=== PATIENT | female | born 1995 | race Caucasian/White ===

== ENCOUNTER 2017-01-04 14:25 | Emergency (ER) | payer SELFPAY ==
[~2017-01-04] VITALS: Ht 160 cm; Wt 55.3 kg
[2017-01-04 15:04] VITALS: BP 130/75
--- NOTE | 2017-01-04 18:10 | NUR ---
PATIENT LEFT WITHOUT BEING SEEN BY DR. ZARCO. NO FURTHER CARE PROVIDED FOR PATIENT.
== END 2017-01-04 18:10 | disposition left against medical advice (07) ==
LOC: MED 14:25
DX: R30.0 Dysuria (principal); Z53.21 Procedure and treatment not carried out due to patient leaving prior to being seen by health care provider

== ENCOUNTER 2018-10-11 19:18 | Observation (INO) | payer MEDICAID ==
[~2018-10-11] VITALS: Ht 160 cm; Wt 58.1 kg
[2018-10-11 19:31] VITALS: BP 114/70
--- NOTE | 2018-10-11 19:34 | NUR ---
TO LOBBY A/W BED, CHRIS DEXTER NOTED
--- NOTE | 2018-10-11 19:50 | NUR ---
PT AMBULATORY TO ER BED 11, W/ FAMILY.
--- NOTE | 2018-10-11 19:55 | NUR ---
First contact with pt. pt presents to the ed w/c/o abd pain in LLQ x today. pt denies eating, or doing anything different from her normal routine. pt states she had a bm earlier today. abd soft and tender to palpation. bowl sounds active in all 4quadrants. peipheral pulses present. lungs clear bilat. +cms. cap refill <3. pt in 1010 pain. pt denies chest pain/sob at this time. +n/v x today. nka only history reported is sx on cyst on her lower abd
[2018-10-11] MEDS ORDERED: ONDANSETRON 4 MG/2 ML VIAL IVP ONE (20:45)
[2018-10-11] MEDS ORDERED: MORPHINE SULFATE 4 MG/ML SYR IVP ONE ×2 (20:45→22:40)
[2018-10-11] MEDS ORDERED: NACL 0.9% 1,000 ML IV ONE (20:45)
[2018-10-11 20:56] LABS: APPEARANCE,URINE HAZY (CLEAR); BILIRUBIN,URINE NEGATIVE (NEGATIVE); BLOOD, URINE 3+ (NEGATIVE); COLOR,URINE DARK YELLOW (YELLOW); LEUKOCYTE ESTERASE ,URINE NEGATIVE (NEGATIVE); NITRITE, URINE NEGATIVE (NEGATIVE); UGLUCOSE NEGATIVE (NEGATIVE)
[2018-10-11 21:03] LABS: RBC,URINE TOO NUMEROUS TO COUN /HPF (0-5); WBC,URINE 0-5 /HPF (0-5)
[2018-10-11 21:08] LABS: BASOPHILS % (AUTO) 0.3 % (0.0-2.0); EOSINOPHILS # (AUTO) 0.1 K/uL (0-0.4); EOSINOPHILS % (AUTO) 1.3 % (0.0-4.0); HEMOGLOBIN 11.6 g/dL (12.0-16.0); LYMPHOCYTES # (AUTO) 1.3 K/uL (2.5-16.5); LYMPHOCYTES % (AUTO) 13.9 % (20.5-51.1); MEAN CORPUSCULAR HEMOGLOBIN 30 pg (27-31); MEAN CORPUSCULAR HGB CONC 33 g/dL (33-37); MEAN CORPUSCULAR VOLUME 89.8 fL (80-94); MONOCYTES # (AUTO) 0.6 K/uL (0.8-1.0); MONOCYTES % (AUTO) 6.3 % (1.7-9.3); NEUTROPHILS # (AUTO) 7.2 K/uL (1.8-7.7); NEUTROPHILS % (AUTO) 78.2 % (42.2-75.2); PLATELET COUNT (AUTO) 284 K/uL (140-450); RED BLOOD CELL COUNT(AUTO) 3.89 MIL/uL (4.20-5.40); RED CELL DISTRIBUTION WIDTH 12.9 % (11.6-13.7); WHITE BLOOD COUNT (AUTO) 9.2 K/uL (4.8-10.8)
--- NOTE | 2018-10-11 21:09 | NUR ---
PT RESTING IN BED AT THIS TIME. NAD NOTED. RR EVEN/UNLABORED. PER DR. SALINAS WE ARE GOING TO CANCEL CT DUE TO POSITIVE TEST AND GOING FORWARD WITH US
[2018-10-11 21:21] LABS: ANION GAP 13.4 (8-16); CREATININE 0.7 mg/dL (0.6-1.3); POTASSIUM 3.4 mmol/L (3.5-5.1)
--- NOTE | 2018-10-11 21:33 | NUR ---
Ultrasound at bedside.
[2018-10-11 21:50] LABS: ALBUMIN 3.9 g/dL (3.4-5.0); TOTAL BILIRUBIN 0.3 mg/dL (0.0-1.0)
--- NOTE | 2018-10-11 21:59 | NUR ---
Stephanie vragas in ED - 10/11/18 at 2159 by RASHEED Patient discharged with v/s stable. Written and verbal after care instructions given and explained. Patient verbalized understanding. Ambulatory with steady gait. All questions addressed prior to discharge. Advised to follow up with PMD.
--- NOTE | 2018-10-11 22:19 | NUR ---
PT REPORTS RETUNING PAIN IN LLQ 7/10 AT THIS TIME. WILL INFORM
--- NOTE | 2018-10-11 22:20 | NUR ---
dr. jaffe to put in orders for pain medication.
--- NOTE | 2018-10-11 22:28 | NUR ---
pt set up for pelvic exam at this time.
--- NOTE | 2018-10-11 22:55 | NUR ---
received verbal order from dr. jaffe for 2mg morphine
--- NOTE | 2018-10-11 23:33 | NUR ---
pt resting in bed. pain controlled at this time. nad noted. rr even/unlabored.
--- NOTE | 2018-10-11 23:40 | NUR ---
called to ask for updated on us report status
--- NOTE | 2018-10-12 00:03 | NUR ---
spoke with yasmani from company that sends over us reports. states she will resend it and fax as well. results show ectopic . Addendum: 10/12/18 at 0150 by RASHEED from [facility]
--- NOTE | 2018-10-12 01:50 | NUR ---
pt resting in bed. NAD noted. No further complaints. pt resting easy
--- NOTE | 2018-10-12 02:05 | NUR ---
ADMITTED A 23F FRO ER. CAME BY WHEELCHAIR. ACCOMPANIED BY MOTHER. MED SURG -FOR OBSERVATION. AWAKE,ALERT AND ORIENTED X4. AMBULATORY. CAME DUE TO A RIGHT LOWER ABDOMINAL PAIN WITH NAUSEA AND VOMITING FOR 1 DAY. DENIES ANY PAIN AT THIS TIME. MEDICATED IN ER PRIOR TO BE IN THE UNIT. HAS HL ON THE LT AC G#20. CLEAR AND PATENT. PLAN OF CARE DISCUSSED AND VERBALIZED UNDERSTANDING. ORIENTED TO HOSPITAL ROUTINE. BED ON LOW POSITION, SIDE RAILS UP X2. CALL LIGHT PLACED WITHIN EASY REACH. WILL FOLLOW UP ADMIT ORDERS WITH DR. DAVIDSON. WILL CONTINUE TO MONITOR.
--- NOTE | 2018-10-12 02:12 | NUR ---
Patient will be admitted to care of dr. holland. Admited to [facility]. Will go to room 105b. Belongings list completed. Report to Annie POOLE.
[2018-10-12 02:33] VITALS: BP 92/56
--- NOTE | 2018-10-12 02:50 | NUR ---
PAGED DR. DAVIDSON FOR PT ADMISSION. CALLED BACK WITH SOME ORDERS. WILL SEE PT THIS AM TODAY.
--- NOTE | 2018-10-12 02:51 | NUR ---
LATE ENTRY. DR. DAVIDSON MADE AWARE OF K+ LEVEL 3.4 NO ORDER MADE.
[2018-10-12] MEDS: LACTATED RINGERS 1,000 ML IV SCH ×2 (03:25→12:51)
--- NOTE | 2018-10-12 03:25 | NUR ---
IVF LR @ 125 ML /HR STARTED ON THE LT AC G#20.
--- NOTE | 2018-10-12 05:00 | NUR ---
MADE ROUNDS. NO S/S OF ANY DISCOMFORT NOR PAIN NOTED.
--- NOTE | 2018-10-12 06:00 | NUR ---
PT HAS BEEN REPOSITIONED FOR COMFORT. INCONTINENT X2. Addendum: 10/12/18 at 0640 by Becca Morales RN CANCEL ABOVE NOTES. WRONG PT.
--- NOTE | 2018-10-12 06:30 | NUR ---
SLEEPING. NO C/O ANY ABDOMINAL PAIN NOTED UP TO THIS TIME.
--- NOTE | 2018-10-12 06:38 | NUR ---
NO RESPIRATORY DISTRESS NOTED DURING THE NIGHT. Addendum: 10/12/18 at 0640 by Becca Morales RN CANCEL ABOVE NOTES. WRONG PT.
--- NOTE | 2018-10-12 07:15 | NUR ---
WILL ENDORSE PT IN STABLE CONDITION TO AM NURSE FOR CONTINUITY OF CARE.
--- NOTE | 2018-10-12 07:16 | NUR ---
RECEIVED REPORT AT BEDSIDE FROM CELL [employer]SEM[employer] PINNER NURSE NOEMI. PT IN STABLE CONDITION. RESPIRATIONS EVEN AND UNLABORED. IV INTACT AND PATENT. SAFETY MEASURES IN PLACE. BED IN LOW POSITION. CALL LIGHT AT BEDSIDE. WILL CONTINUE TO MONITOR.
[2018-10-12 08:00] VITALS: BP 89/53
--- NOTE | 2018-10-12 09:35 | NUR ---
PT LYING IN BED SLEEPING AT THIS TIME. FAMILY AT BEDSIDE. WILL CONTINUE TO MONITOR. BED IN LOW POSITION. CALL LIGHT AT BEDSIDE.
[2018-10-12 12:00] VITALS: BP 94/56
--- NOTE | 2018-10-12 12:12 | NUR ---
PATIENT HAS BEEN SCREENED AND CATEGORIZED LOW NUTRITION RISK. PATIENT WILL BE SEEN WITHIN 7 DAYS OF ADMISSION. 10/18/[address]
--- NOTE | 2018-10-12 12:45 | NUR ---
LACTATED RINGER 1,000 ML FINISHED AT 1245
--- NOTE | 2018-10-12 12:52 | NUR ---
LACTATED RINGER 1,000 ML STARTED AT 1250.
--- NOTE | 2018-10-12 13:00 | NUR ---
DR DAVIDSON AT BEDSIDE. ASSISTED WITH PELVIC EXAM. PT TOLERATED WELL. WILL CONTINUE TO MONITOR.
--- NOTE | 2018-10-12 14:50 | NUR ---
STOPPED LACTATED RINGER 1,000 ML INFUSED 25OML .
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
== END 2018-10-12 15:15 | disposition home or self-care (01) ==
LOC: MED 19:18 → MTU 10-12 01:39
PROVIDERS: ADMIT Obstetrics & Gynecology; ATTEND Obstetrics & Gynecology
DX: O26.893 Other specified pregnancy related conditions, third trimester (principal); R10.31 Right lower quadrant pain; R19.7 Diarrhea, unspecified; O21.2 Late vomiting of pregnancy
CPT/HCPCS: 36415; 76801; 80053; 81001; 81025; 83690; 84702; 85025; 86900; 86901; 87081; 87086; 96361; 96374; 96375; 96376; 99285; G0378; J2270; J2405; J7120; Q0092

== ENCOUNTER 2018-11-27 15:31 | Emergency (ER) | payer MEDICAID ==
[~2018-11-27] VITALS: Ht 160 cm; Wt 56.7 kg
[2018-11-27 15:40] VITALS: BP 97/59
--- NOTE | 2018-11-27 15:47 | NUR ---
PT AMBULATED TO ER BED 11
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
[2018-11-27] MEDS ORDERED: ONDANSETRON 4 MG ODT PO ONE (16:10)
[2018-11-27] MEDS ORDERED: ONDANSETRON 4 MG ODT ONE (16:17)
--- NOTE | 2018-11-27 16:23 | NUR ---
2 inch orthoglass used to apply ulna gutter splint to right hand. sling also fitted and applied to patient[facility]
--- NOTE | 2018-11-27 16:23 | NUR ---
2IN JORDYN ULNA GUTTER SPLINT APPLIED TO RT HAND BY MUNIRA BUSTAMANTE. CMS INTACT. PULSES PRESENT AND WNL PRIOR TO AND POST SPLINT APPLICATION. CAP REFILL WNL.
[2018-11-27 16:49] VITALS: BP 97/59
--- NOTE | 2018-11-27 16:49 | NUR ---
Patient discharged with v/s stable. Written and verbal after care instructions given and explained. Patient alert, oriented and verbalized understanding of instructions. Ambulatory with steady gait. All questions addressed prior to discharge. ID band removed. Patient advised to follow up with PMD. Rx of TRAMADOL, MOTRIN given. Patient educated on indication of medication including possible reaction and side effects. Opportunity to ask questions provided and answered.
== END 2018-11-27 16:49 | disposition home or self-care (01) ==
LOC: MED 15:31
DX: S62.396A Other fracture of fifth metacarpal bone, right hand, initial encounter for closed fracture (principal); W22.01XA Walked into wall, initial encounter; Y93.89 Activity, other specified; Y92.89 Other specified places as the place of occurrence of the external cause; Y99.8 Other external cause status
CPT/HCPCS: 29125; 73130; 81025; 99283; Q0092; Q0162